=== PATIENT | male | born 1975 | race Caucasian/White ===

== ENCOUNTER 2023-10-21 08:54 | Emergency (ER) | payer OTHER ==
[~2023-10-21] VITALS: Ht 180.3 cm; Wt 100.2 kg
[2023-10-21] MEDS: LIDOcaine 1% 30ml preserv. free vial SQ STA (10:38)
[2023-10-21] MEDS: TETanus/Pertussis (Acell)/Diphther VAC/PF (Tdap-Adult) 0.5ml syringe IMVAC ONE (11:02)
[2023-10-21 11:09] VITALS: BP 130/75; PULSE 79; RESP 16; TEMP 97.3; O2SAT 99
== END 2023-10-21 11:07 | disposition home or self-care (01) ==
LOC: ER 08:55
DX: S61.512A Laceration without foreign body of left wrist, initial encounter (principal); W26.8XXA Contact with other sharp object(s), not elsewhere classified, initial encounter; Y93.89 Activity, other specified; Y92.89 Other specified places as the place of occurrence of the external cause; Y99.8 Other external cause status
CPT/HCPCS: 12002; 90471; 90715; 99283; A6449